=== PATIENT | female | born 1955 | race Hispanic/Latino ===

== ENCOUNTER 2017-08-12 14:05 | Emergency (ER) | payer OTHER ==
[2017-08-12 14:27] VITALS: TEMP 97.4
[2017-08-12] MEDS ORDERED: Sodium Chloride 0.9% 1,000 ML IV STA ×2 (14:45→16:29)
[2017-08-12] MEDS ORDERED: Ipratropium 0.02% Inhal Soln (0.5 mg/2.5 ml) UD IH STA ×2 (14:46→16:54)
[2017-08-12 14:51] VITALS: RESP 18
--- NOTE | 2017-08-12 15:01 | ED PDOC ---
Arrival/HPI - General Chief Complaint: Shortness Of Breath Time Seen by Provider: 08/12/17 14:21 - History of Present Illness Narrative History of Present Illness (Text): 08/12/17 14:58 61 y/o woman ww/ pmhx htn. hld, dm, cva w/ residual lue ataxia presents c/o 2 weeks of cough productive of greenish mucus, despite pmd (Dr. Berry's z-shantel course/antitussives ) presents c/o progressively worsiening mcintyre/sob culmiaiting in an episode of of diaphoresisi while in pmd's office today am, and an episode of vomiting en route to ed. Se denies fevers/chills/cp /exertional cp. ros + increased malaise/poor apepttie and uriary frequency x 2 weeks. Past Medical History - Provider Review Nursing Documentation Reviewed: Yes - Infectious Disease Hx of Infectious Diseases: None - Reproductive Menopause: Yes - Cardiac Hx Hypertension: Yes - Neurological HX Cerebrovascular Accident: Yes (x 2) - Endocrine/Metabolic Hx Diabetes Mellitus Type 2: Yes - Psychiatric Hx Substance Use: No - Anesthesia Hx Anesthesia Reactions: No Family/Social History - Physician Review Nursing Documentation Reviewed: Yes Family/Social History: No Known Family HX Smoking Status: Former Smoker Hx Alcohol Use: No Hx Substance Use: No Allergies/Home Meds Allergies/Adverse Reactions: Allergies No Known Allergies Allergy (Verified 08/12/17 14:16) Home Medications: Home Meds Medication Instructions Recorded Confirmed Clopidogrel [Plavix] 75 mg PO DAILY 08/12/17 08/12/17 Famotidine [Pepcid] 40 mg PO BID 08/12/17 08/12/17 Lisinopril [Zestril] 5 mg PO DAILY 08/12/17 08/12/17 Metoprolol Saul/Hydrochlorothiaz 25 mg PO DAILY 08/12/17 08/12/17 [Metoprolol ER-Hctz 50-12.5 mg] Omeprazole [Omeprazole] 40 mg PO DAILY 08/12/17 08/12/17 Simvastatin [Zocor] 40 mg PO DAILY 08/12/17 08/12/17 metFORMIN [glucOPHAGE] 850 mg PO BID 08/12/17 08/12/17 Review of Systems - Physician Review All systems were reviewed & negative as marked: Yes - Review of Systems Constitutional: Normal Eyes: Normal ENT: Normal, Rhinorrhea Respiratory: SOB, Cough, Sputum Cardiovascular: Normal Gastrointestinal: Normal Genitourinary Female: Frequency Musculoskeletal: Normal Skin: Normal Neurological: Normal Endocrine: Normal Hemo/Lymphatic: Normal Psychiatric: Normal Physical Exam Vital Signs Reviewed: Yes Vital Signs Temp Pulse Resp BP Pulse Ox 08/12/17 17:39 90 18 111/74 95 08/12/17 14:14 18 08/12/17 14:10 97.4 F L 90 20 134/86 96 Temperature: Afebrile Blood Pressure: Normal Pulse: Regular Respiratory Rate: Normal Appearance: Positive for: Well-Appearing, Non-Toxic, Comfortable Pain Distress: None Mental Status: Positive for: Alert and Oriented X 3 - Systems Exam Head: Present: Atraumatic, Normocephalic Pupils: Present: PERRL Extroacular Muscles: Present: EOMI Conjunctiva: Present: Normal Mouth: Present: Moist Mucous Membranes Neck: Present: Normal Range of Motion Respiratory/Chest: Present: Clear to Auscultation, Good Air Exchange. No: Respiratory Distress, Accessory Muscle Use Cardiovascular: Present: Regular Rate and Rhythm, Normal S1, S2. No: Murmurs Abdomen: Present: Normal Bowel Sounds. No: Tenderness, Distention, Peritoneal Signs Back: Present: Normal Inspection Upper Extremity: Present: Normal Inspection. No: Cyanosis, Edema Lower Extremity: Present: Normal Inspection. No: Edema Neurological: Present: GCS=15, CN II-XII Intact, Speech Normal, Motor Func Grossly Intact, Normal Sensory Function, Normal Cerebellar Funct, Norm Deep Tendon Reflexes, Gait Normal, Memory Normal, Normal 2Pt Descrimination Skin: Present: Warm, Dry, Normal Color. No: Rashes Psychiatric: Present: Alert, Oriented x 3, Normal Insight, Normal Concentration Medical Decision Making ED Course and Treatment: 61 y/o female w/ relevant aforementioned pmhx p/w 2 wks of uri like symptoms worsieing w/ sob/vomiing today. risk stratify w/ labs/cxr/blood cultre trial of antiemetics/ivf/ ipratrpium r/po type demeand ischemia w/ a set of ce's given 2 wk onset of symptoms. 08/12/17 15:02 08/12/17 18:33 Pt. feels especially better s/p inhalers. Of note Dr. Berry had also given her a script for inhalers and another antitusiive that she hadn't had an opportunity to see as yet . Her labs display a picture of mari hyperosmolar hyperglycemic state and not dka. serial abdominal exams benign and pt. passed po challenge. mari HOYT w/ component of gastritis - Lab Interpretations Lab Results: 08/12/17 14:30 08/12/17 14:30 Lab Results 08/12/17 17:45: pO2 150 H, VBG pH 7.43, VBG pCO2 45.0, VBG HCO3 29.9 H, VBG Total CO2 31.3 H, VBG O2 Sat (Calc) 99.7 H, VBG Base Excess 4.8 H, VBG Potassium 4.5, Glucose 349 H, Lactate 2.1, FiO2 21.0, Sodium 135.0, Chloride 100.0, Venous Blood Potassium 4.5 08/12/17 16:05: Urine Color Yellow, Urine Appearance Clear, Urine pH 6.0, Ur Specific [place] 1.025, Urine Protein Negative, Urine Glucose (UA) >=1000, Urine Ketones 15 H, Urine Blood Negative, Urine Nitrate Negative, Urine Bilirubin Negative, Urine Urobilinogen 0.2, Ur Leukocyte Esterase Negative 08/12/17 14:30: Sodium 135, Potassium 3.9, Chloride 96 L, Carbon Dioxide 28, Anion Gap 16, BUN 14, Creatinine 0.9, Est GFR ( Amer) > 60, Est GFR (Non- Af Amer) > 60, Random Glucose 416 H*, Calcium 9.9, Total Bilirubin 0.8, AST 30, ALT 40, Alkaline Phosphatase 91, Lactate Dehydrogenase 412, Total Creatine Kinase 67, Troponin I < 0.01, NT-Pro-B Natriuret Pep 117, Total Protein 7.3, Albumin 4.1, Globulin 3.2, Albumin/Globulin Ratio 1.3 08/12/17 14:30: PT 10.9, INR 1.00, APTT 27.3 08/12/17 14:30: WBC 7.0, RBC 4.73, Hgb 14.3, Hct 41.4, MCV 87.5, MCH 30.2, MCHC 34.5, RDW 12.7, Plt Count 335, MPV 10.0, Gran % 59.6, Lymph % (Auto) 32.3, [place] % (Auto) 5.6, Eos % (Auto) 1.9, Baso % (Auto) 0.6, Gran # 4.19, Lymph # 2.3, [place] # 0.4, Eos # 0.1, Baso # 0.04 - RAD Interpretation Radiology Orders: 08/12/17 16:30 CHEST TWO VIEWS (PA/LAT) [RAD] Stat - Medication Orders Current Medication Orders: Discontinued Medications Sodium Chloride (Sodium Chloride 0.9%) 1,000 mls @ 999 mls/hr IV .Q1H1M STA Stop: 08/12/17 15:45 Last Admin: 08/12/17 14:53 Dose: 999 mls/hr eMAR Start Stop Document 08/12/17 14:53 SF (Rec: 08/12/17 14:54 SF [id number]) Intravenous Solution Start Date 08/12/17 Start Time 14:53 End Date 08/12/17 End time 15:54 Total Infusion Time 61 Sodium Chloride (Sodium Chloride 0.9%) 1,000 mls @ 999 mls/hr IV .Q1H1M STA Stop: 08/12/17 17:29 Last Admin: 08/12/17 16:30 Dose: 999 mls/hr eMAR Start Stop Document 08/12/17 16:30 SF (Rec: 08/12/17 17:31 SF [id number]) Intravenous Solution Start Date 08/12/17 Start Time 16:30 End Date 08/12/17 End time 17:31 Total Infusion Time 61 Insulin Human Regular (Humulin R) 6 units SC STAT STA PRN Reason: Protocol Stop: 08/12/17 16:29 Last Admin: 08/12/17 17:40 Dose: 6 units MAR Blood Glucose Document 08/12/17 17:40 SF (Rec: 08/12/17 17:41 SF [id number]) Blood Glucose Finger Stick Blood Glucose (70-120) 282 Subcutaneous Administrations Document 08/12/17 17:40 SF (Rec: 08/12/17 17:41 SF [id number]) Injection Site MAR Injection Site Left Deltoid Charges for Administration # of Subcutaneous Administrations 1 Ipratropium [place] (Atrovent) 0.5 mg IH STAT STA Stop: 08/12/17 14:47 Last Admin: 08/12/17 14:53 Dose: 0.5 mg Ipratropium [place] (Atrovent) 0.5 mg IH STAT STA Stop: 08/12/17 16:55 Last Admin: 08/12/17 17:31 Dose: 0.5 mg Methylprednisolone (Solu-Medrol) 125 mg IVP STAT STA Stop: 08/12/17 15:06 Last Admin: 08/12/17 15:41 Dose: 125 mg IVP Administration Document 08/12/17 15:41 SF (Rec: 08/12/17 15:41 SF [id number]) Charges for Administration # of IVP Administrations 1 Metoclopramide HCl (Reglan) 10 mg IVPB STAT STA Stop: 08/12/17 14:47 Last Admin: 08/12/17 14:53 Dose: 10 mg eMAR Start Stop Document 08/12/17 14:53 SF (Rec: 08/12/17 14:53 SF [id number]) Intravenous Solution Start Date 08/12/17 Start Time 14:53 Disposition/Present on Arrival - Present on Arrival Any Indicators Present on Arrival: No History of DVT/PE: No History of Uncontrolled Diabetes: No Urinary Catheter: No History of Decub. Ulcer: No History Surgical Site Infection Following: None - Disposition Have Diagnosis and Disposition been Completed?: Yes Diagnosis: Upper respiratory infection, Reactive airway disease that is not asthma Disposition: HOME/ ROUTINE Disposition Time: 18:40 Patient Plan: Discharge Condition: IMPROVED Discharge Instructions (ExitCare): Upper Respiratory Infection (ED), Reactive Airways Disease (DC) Print Language: UPPER SORBIAN Additional Instructions: Please avoid milk and dairy while with mucoid expectoration . Drink plenty of water, take the medicine as needed. Prescriptions: Doxycycline Monohydrate 100 mg PO BID #14 tablet Ipratropium 0.02% [Atrovent] 0.02 mg IH Q6 PRN #1 neb PRN Reason: Cough Metoclopramide [Reglan] 10 mg PO Q8 PRN #10 tab PRN Reason: Nausea/Vomiting Prednisone [Deltasone] 40 mg PO DAILY #8 tablet Referrals: Maddy Berry MD [Primary Care Provider] - Follow up with primary Forms: [employer] (Maltese)
[2017-08-12 15:43] LABS: BASO # 0.04 K/mm3 (0.0-2.0); BASO % 0.6 % (0.0-3.0); EOS # 0.1 (0.0-0.7); EOS % 1.9 % (1.5-5.0); GRAN # 4.19 (1.4-6.5); GRAN % 59.6 % (50.0-68.0); HEMATOCRIT 41.4 % (36.0-48.0); LYMPH # 2.3 (1.2-3.4); LYMPH % 32.3 % (22.0-35.0); MEAN CELL VOLUME 87.5 fl (80.0-105.0); MEAN CORPUSCULAR HEMOGLOBIN 30.2 pg (25.0-35.0); MEAN CORPUSCULAR HGB CONC 34.5 g/dl (31.0-37.0); MONO # 0.4 (0.1-0.6); MONO % 5.6 % (1.0-6.0); RED CELL DISTRIBUTION WIDTH 12.7 % (11.5-14.5)
[2017-08-12 15:53] LABS: PARTIAL THROMBOPLASTIN TIME 27.3 Seconds (25.1-36.5)
[2017-08-12 16:02] LABS: TROPONIN I < 0.01 ng/mL
[2017-08-12 16:11] LABS: ALB/GLOB RATIO 1.3 (1.1-1.8); ALKALINE PHOSPHATASE 91 U/L (38-126); ALT/SGPT 40 U/L (7-56); AST/SGOT 30 U/L (14-36); BILIRUBIN,TOTAL 0.8 mg/dL (0.2-1.3); BLOOD UREA NITROGEN 14 mg/dL (7-21); CALCIUM 9.9 mg/dL (8.4-10.5); CARBON DIOXIDE 28 mmol/L (21-33); CHLORIDE 96 mmol/L (98-107); GFR AFRICAN-AMERICAN > 60; GLUCOSE,RANDOM 416 mg/dL (70-110); POTASSIUM 3.9 mmol/L (3.6-5.0); SODIUM 135 mmol/L (132-148); TOTAL PROTEIN 7.3 g/dL (5.8-8.3)
[2017-08-12 16:22] LABS: URINE BILIRUBIN NEGATIVE (NEGATIVE); URINE BLOOD NEGATIVE (NEGATIVE); URINE GLUCOSE (UA) >=1000 mg/dL (NEGATIVE); URINE KETONE 15 mg/dL (NEGATIVE); URINE LEUKOCYTE ESTERASE NEGATIVE Leu/uL (NEGATIVE); URINE PROTEIN NEGATIVE mg/dL (<30 mg/dL); URINE UROBILINOGEN 0.2 E.U./dL (<1 E.U./dL)
[2017-08-12 16:24] LABS: URINE APPEARANCE CLEAR (CLEAR); URINE COLOR YELLOW (YELLOW)
[2017-08-12] MEDS ORDERED: Insulin Regular 1 UNITS/0.01 ML ML SC STA (16:28)
[2017-08-12 18:00] LABS: VENOUS BLOOD GAS BASE EXCESS 4.8 mmol/L (0.0-2.0); VENOUS BLOOD PH 7.43 (7.32-7.43)
[2017-08-12 19:35] VITALS: BP 114/80; PULSE 88; O2SAT 96
--- NOTE | 2017-08-12 21:48 | CARD ---
APPROVED REPORT EKG Measurement Heart [id number] [place] [id number] [id number] <Conclusion> Normal sinus rhythm Left axis deviation Moderate voltage criteria for LVH, may be normal variant Inferior infarct, age undetermined Anterolateral infarct, age undetermined Abnormal ECG
--- NOTE | 2017-08-13 08:19 | RAD ---
HISTORY: The only clinical history provided is "rule out infiltrate". COMPARISON: Seven TECHNIQUE: Chest PA and lateral FINDINGS: LUNGS: Hyperinflation, manifestations of COPD. No active pulmonary disease. PLEURA: No significant pleural effusion identified. No pneumothorax apparent. CARDIOVASCULAR: No radiographic findings to suggest acute or significant cardiovascular disease. OSSEOUS STRUCTURES: No significant abnormalities. VISUALIZED UPPER ABDOMEN: Normal. OTHER FINDINGS: None. IMPRESSION: No active disease.
== END 2017-08-12 19:35 | disposition home or self-care (01) ==
LOC: ED 14:05
DX: J06.9 Acute upper respiratory infection, unspecified (principal); I10 Essential (primary) hypertension; E11.9 Type 2 diabetes mellitus without complications; I69.893 Ataxia following other cerebrovascular disease; Z87.891 Personal history of nicotine dependence
CPT/HCPCS: 71020; 80053; 81003; 82550; 82803; 83615; 83880; 84484; 85025; 85610; 85730; 87040; 87086; 93005; 96361; 96374; 96375; 99285; J2765; J2930; J7040

== ENCOUNTER 2018-04-15 16:11 | Emergency (ER) | payer OTHER ==
[2018-04-15 16:25] VITALS: RESP 18; TEMP 97.6
--- NOTE | 2018-04-15 17:26 | ED PDOC ---
Arrival/HPI - General Chief Complaint: Female Genitourinary Time Seen by Provider: 04/15/18 16:16 Historian: Patient - History of Present Illness Narrative History of Present Illness (Text): 04/15/18 17:21 Patient is a 62 year old female with past medical history of CVA x 2, diabetes, hyperlipidemia, gastritis, hypothyroidism presents to the Emergency department for vaginal bleeding that started two days ago. Describes the bleeding as bright red spotting. This has never happened to her before. Bleeding is associated with abdominal cramping. Patient states that started menopause 20 years ago. Has not seen a [facility]ST[facility] in 6 years. States that her pap smear at that time was normal. Denies headaches, dizziness, cp, palpitations, sob, urinary symptoms, changes in bowel habits. Time/Duration: < week Symptom Onset: Gradual Symptom Course: Unchanged Past Medical History - Provider Review Nursing Documentation Reviewed: Yes - Infectious Disease Hx of Infectious Diseases: None - Reproductive Menopause: Yes - Cardiac Hx Cardiac Disorders: Yes Hx Hypertension: Yes - Pulmonary Hx Respiratory Disorders: No - Neurological Hx Neurological Disorder: Yes HX Cerebrovascular Accident: Yes (x 2) - HEENT Hx HEENT Disorder: Yes Other/Comment: WEAKNESS RT EYE FROM STROKE - Renal Hx Renal Disorder: No - Endocrine/Metabolic Hx Endocrine Disorders: Yes Hx Diabetes Mellitus Type 2: Yes Hx Hypothyroidism: Yes - Hematological/Oncological Hx Blood Disorders: No - Integumentary Hx Dermatological Disorder: No - Musculoskeletal/Rheumatological Hx Musculoskeletal Disorders: Yes Hx Arthritis: Yes Hx Back Pain: Yes Hx Falls: Yes - Gastrointestinal Hx Gastrointestinal Disorders: Yes Hx Gastritis: Yes - Genitourinary/Gynecological Hx Genitourinary Disorders: No - Psychiatric Hx Psychophysiologic Disorder: No Hx Substance Use: No - Surgical History Hx Arthroscopy: Yes (LEFT KNEE ) - Anesthesia Hx Anesthesia: Yes Hx Anesthesia Reactions: No Hx Malignant Hyperthermia: No Family/Social History - Physician Review Nursing Documentation Reviewed: Yes Family/Social History: Diabetes, CAD/AK Smoking Status: Former Smoker Hx Alcohol Use: No Hx Substance Use: No Allergies/Home Meds Allergies/Adverse Reactions: Allergies TOMATOES Allergy (Uncoded 04/15/18 16:27) ITCHING Home Medications: Home Meds Medication Instructions Recorded Confirmed Lisinopril [Zestril] 5 mg PO DAILY 08/12/17 04/15/18 Omeprazole [Omeprazole] 40 mg PO DAILY 08/12/17 04/15/18 Simvastatin [Zocor] 40 mg PO DAILY 08/12/17 04/15/18 metFORMIN [glucOPHAGE] 850 mg PO BID 08/12/17 04/15/18 Levothyroxine [Synthroid] 1 tab PO DAILY 03/08/18 04/15/18 Review of Systems - Physician Review All systems were reviewed & negative as marked: Yes - Review of Systems Constitutional: absent: Fatigue, Fevers Eyes: absent: Vision Changes, Photophobia ENT: absent: Hearing Changes Cardiovascular: absent: Chest Pain, Palpitations Gastrointestinal: Abdominal Pain. absent: Stool Changes, Constipation, Diarrhea , Nausea, Vomiting, Hematochezia Genitourinary Female: Vaginal Bleeding. absent: Dysuria, Frequency, Hematuria Musculoskeletal: absent: Back Pain Neurological: absent: Headache, Dizziness Physical Exam Vital Signs Reviewed: Yes Vital Signs Temp Pulse Resp BP Pulse Ox 04/15/18 17:53 84 18 139/88 98 04/15/18 16:23 97.6 F 90 18 124/103 H 97 Temperature: Afebrile Blood Pressure: Other (BP rechecked 139/88) Pulse: Regular Respiratory Rate: Normal Appearance: Positive for: Well-Appearing, Comfortable Pain Distress: None Mental Status: Positive for: Alert and Oriented X 3 - Systems Exam Head: Present: Atraumatic, Normocephalic Pupils: Present: PERRL Extroacular Muscles: Present: EOMI Conjunctiva: Present: Normal Mouth: Present: Moist Mucous Membranes Respiratory/Chest: Present: Clear to Auscultation, Good Air Exchange. No: Respiratory Distress Cardiovascular: Present: Regular Rate and Rhythm, Normal S1, S2 Genitourinary/Pelvic Exam: Present: Other (5cc of dark red blood in vaginal vault, no lesions visualized, cervix not visualized as patient unable to tolerate speculum exam; patient declined bimanual exam) Upper Extremity: Present: Normal Inspection Lower Extremity: Present: Normal Inspection Skin: Present: Warm, Dry, Normal Color Psychiatric: Present: Alert, Oriented x 3, Normal Insight Medical Decision Making Re-evaluation Time: 18:25 - Lab Interpretations Lab Results: 04/15/18 17:34 04/15/18 17:34 Lab Results 04/15/18 17:34: Sodium 137, Potassium 4.2, Chloride 97 L, Carbon Dioxide 27, Anion Gap 18, BUN 14, Creatinine 0.9, Est GFR ( Amer) > 60, Est GFR (Non- Af Amer) > 60, Random Glucose 433 H*, Calcium 9.7, Total Bilirubin 0.6, AST 31, ALT 30, Alkaline Phosphatase 87, Total Protein 7.6, Albumin 4.5, Globulin 3.1, Albumin/Globulin Ratio 1.4 04/15/18 17:34: PT 11.4, INR 1.00, APTT 28.3 04/15/18 17:34: WBC 7.0, RBC 5.06, Hgb 15.0, Hct 42.4, MCV 83.8 D, MCH 29.6, MCHC 35.4, RDW 12.6, Plt Count 321, MPV 9.8, Gran % 62.5, Lymph % (Auto) 29.6, [place] % (Auto) 6.3 H, Eos % (Auto) 1.2 L, Baso % (Auto) 0.4, Gran # 4.34, Lymph # (Auto) 2.1, [place] # (Auto) 0.4, Eos # (Auto) 0.1, Baso # (Auto) 0.03 I have reviewed the lab results: Yes - RAD Interpretation Narrative RAD Interpretations (Text): 04/15/18 18:34 Patient was taken for Transvaginal US and was not able to complete the exam due to intolerance. Informed the patient the importance of performing this US for evaluation of post-menopausal bleeding. Patient states that she will follow up with [facility] outpatient. Radiology Orders: 04/15/18 17:18 PELVIS ULTRASOUND [US] Stat - Medication Orders Current Medication Orders: Discontinued Medications Acetaminophen (Tylenol 325mg Tab) 650 mg PO STAT STA Stop: 04/15/18 17:12 Disposition/Present on Arrival - Present on Arrival Any Indicators Present on Arrival: Yes History of DVT/PE: No History of Uncontrolled Diabetes: Yes Urinary Catheter: No History of Decub. Ulcer: No History Surgical Site Infection Following: None - Disposition Have Diagnosis and Disposition been Completed?: Yes Diagnosis: Postmenopausal bleeding, Elevated blood sugar Disposition: HOME/ ROUTINE Disposition Time: 18:32 Patient Plan: Discharge Patient Problems: Current Active Problems Problem Status Onset Elevated blood sugar Acute Postmenopausal bleeding Acute Condition: FAIR Discharge Instructions (ExitCare): Hyperglycemia, Adult, Dysfunctional Uterine Bleeding (ED) Additional Instructions: Please follow up with your primary doctor, Dr Berry, for diabetes management Please follow up with [facility] as soon as possible for evaluation of post menopausal bleeding If having any worsening of symptoms, return to nearest ED Forms: [email or web address] ([place]ian)
[2018-04-15 17:51] LABS: BASO # 0.03 K/mm3 (0.0-2.0); BASO % 0.4 % (0.0-3.0); EOS # 0.1 (0.0-0.7); EOS % 1.2 % (1.5-5.0); GRAN # 4.34 (1.4-6.5); GRAN % 62.5 % (50.0-68.0); LYMPH # 2.1 (1.2-3.4); LYMPH % 29.6 % (22.0-35.0); MEAN CELL VOLUME 83.8 fl (80.0-105.0); MEAN CORPUSCULAR HEMOGLOBIN 29.6 pg (25.0-35.0); MEAN CORPUSCULAR HGB CONC 35.4 g/dl (31.0-37.0); MEAN PLATELET VOLUME 9.8 fl (7.0-11.0); MONO # 0.4 (0.1-0.6); MONO % 6.3 % (1.0-6.0); RBC 5.06 10^6/uL (3.5-6.1); RED CELL DISTRIBUTION WIDTH 12.6 % (11.5-14.5)
[2018-04-15 17:54] VITALS: BP 139/88; PULSE 84; O2SAT 98
[2018-04-15 18:04] LABS: PARTIAL THROMBOPLASTIN TIME 28.3 Seconds (25.1-36.5); PROTHROMBIN TIME 11.4 SECONDS (9.4-12.5)
[2018-04-15 18:17] LABS: ALB/GLOB RATIO 1.4 (1.1-1.8); ALBUMIN 4.5 g/dL (3.0-4.8); ALT/SGPT 30 U/L (7-56); AST/SGOT 31 U/L (14-36); BLOOD UREA NITROGEN 14 mg/dL (7-21); CALCIUM 9.7 mg/dL (8.4-10.5); GFR AFRICAN-AMERICAN > 60; GFR NON-AFRICAN AMERICAN > 60
[2018-04-15 18:50] LABS: URINE BILIRUBIN NEGATIVE (NEGATIVE); URINE BLOOD LARGE (NEGATIVE); URINE GLUCOSE (UA) >=1000 mg/dL (NEGATIVE); URINE LEUKOCYTE ESTERASE NEGATIVE Leu/uL (NEGATIVE); URINE PROTEIN TRACE mg/dL (<30 mg/dL); URINE UROBILINOGEN 0.2 E.U./dL (<1 E.U./dL)
[2018-04-15 18:57] LABS: URINE APPEARANCE CLEAR (CLEAR); URINE COLOR YELLOW (YELLOW)
[2018-04-15 19:10] LABS: URINE AMORPHOUS SEDIMENT FEW; URINE BACTERIA MANY (NEG); URINE RBC 25 - 30 /hpf (0-2)
== END 2018-04-15 18:40 | disposition home or self-care (01) ==
LOC: ED 16:11
DX: N95.0 Postmenopausal bleeding (principal); E11.65 Type 2 diabetes mellitus with hyperglycemia; E78.5 Hyperlipidemia, unspecified; E03.9 Hypothyroidism, unspecified; I10 Essential (primary) hypertension; Z87.891 Personal history of nicotine dependence; Z86.73 Personal history of transient ischemic attack (TIA), and cerebral infarction without residual deficits; Z79.84 Long term (current) use of oral hypoglycemic drugs